=== PATIENT | male | born 2005 | race Caucasian/White ===

== ENCOUNTER 2023-09-08 16:37 | Day surgery (SDC) | payer BC, SELFPAY ==
[2023-09-08 12:02] VITALS: BP 123/81
[2023-09-08] MEDS: OMNIPAQUE 50 ML PO (12:46)
[2023-09-08 12:56] VITALS: BMI 27.0
[2023-09-08] MEDS: NSS 1000 IV (12:57)
[2023-09-08] MEDS: FLAGYL 500 MG 100 IV (13:07)
[2023-09-08 13:12] LABS: % Basophils 0.4 % (0-2); % Eosinophils 1.5 % (0-6); % Immature Granulocytes 0.3 % (0-0.5); % Lymphocytes 17.9 % (20.5-51.1); % Monocytes 10.8 % (1.7-9.3); % Neutrophils 69.1 % (42.2-75.2); Absolute Eosinophils 0.1 10^3/uL (0-0.7); Absolute Lymphocytes 1.7 10^3/uL (1.2-3.4); Absolute Neutrophils 6.5 10^3/uL (1.4-6.5); Hemoglobin 14.3 g/dL (13.0-18.0); Mean Corpuscular Hgb 28.8 pg (27.0-31.0); Mean Corpuscular Volume 84.5 fL (80.0-94.0); Mean Platelet Volume 11.1 fL (7.4-10.4); Nucleated Red Blood Cells % 0 % (-); Platelet Count 216 10^3/uL (130-400); Red Blood Cell Count 4.97 10^6/uL (4.70-6.10); Red Cell Dist. Width 12.7 % (11.5-14.5); White Blood Cell Count 9.4 10^3/uL (4.8-10.8)
[2023-09-08 13:21] LABS: Lactic Acid 0.6 mmol/L (0.7-2.0)
[2023-09-08 13:23] LABS: ALT (SGPT) 22 U/L (0-50); AST (SGOT) 26 U/L (17-59); Alkaline Phosphatase 71 U/L (38-126); Blood Urea Nitrogen 27 mg/dl (9-20); Calcium 9.7 mg/dl (8.4-10.2); Carbon Dioxide 27 mmol/L (22-30); Chloride 104 mmol/L (98-107); Estimated Creatinine Clearance 114 ml/min; Glucose 94 mg/dl (70-99); Potassium 4.6 mmol/L (3.5-5.1); Sodium 139 mmol/L (135-145); Total Bilirubin 0.9 mg/dl (0.2-1.3); Total Protein 7.3 g/dl (6.3-8.2); eGFR > 60.00
[2023-09-08] MEDS: LEVAQUIN 150 IV (14:46)
[2023-09-08 15:11] VITALS: BP 120/66
--- NOTE | 2023-09-08 16:27 | ED.GENMED ---
History of Present Illness
General
Chief Complaint: Skin Problem
Source: patient
Time Seen by Provider: 09/08/23 12:40
History of Present Illness
History of Present Illness:
18yoM with a history of a prior perirectal abscess at the age of 11 presenting with his mother for evaluation of rectal pain. Patient started with rectal discomfort about 2 weeks ago which acutely became worse 3 days ago. He was seen by Dr. Jack in
the outpatient setting today and he was sent to the ED for concern for a perirectal abscess. Patient is having normal bowel movements. He denies any fevers or chills.
Past History
Social History
Tobacco: Non-smoker
Alcohol: None
Drug: None
Phy Exam
General Physical Exam
General Presentation: well appearing and no apparent distress
General age: appears stated age
General Skin: warm and dry
General Habitus: normal
General Mental: alert
Cardiovascular Exam
Cardiovascular Exam: regular rate/rhythm
Pulmonary Exam
Pulmonary Exam: no respiratory distress
Gastrointestinal Exam
Gastrointestinal Exam: non tender, soft and non distended
Rectal Exam: other (Area of pain, swelling, redness, and induration palpated anterior to rectum. )
Skin Exam
Skin Exam: warm/dry
Psychiatric Exam
Psychiatric Exam: normal mood/affect
Course
Orders/Labs/Results
Orders:
Orders
09/08/23 12:40
0.9% Sodium Chloride 1000 ml [Nss] 1,000 ml IV BOLUS
Iohexol [Omnipaque] See Protocol PO NOW STA
09/08/23 12:41
CT Abd/pel W Iv And Oral Contr Urgent
Comment:
Reason For Exam: Perirectal abscess
09/08/23 12:50
LevoFLOXacin 750 MG/150 ML [Levaquin] 750 mg in 150 ml IV NOW
MetroNIDAZOLE 500 MG/100 ML [Flagyl 500 mg] 100 ml IV ONCE
09/08/23 12:56
Complete Blood Count/With Diff Urgent
Comprehensive Metabolic Panel Urgent
Lactate Level [Lactic Acid] Urgent
Abnormal Lab Results
09/08/23
12:56
MPV 11.1 H fL
(7.4-10.4)
Absolute Monos (auto) 1.0 H 10^3/uL
(0.1-0.6)
Lymphocytes % 17.9 L %
(20.5-51.1)
Monocytes % 10.8 H %
(1.7-9.3)
BUN 27 H mg/dl
(9-20)
Lactic Acid 0.6 L mmol/L
(0.7-2.0)
09/08/23 12:56
09/08/23 12:56
Vital Signs
Initial and Last Documented VS:
Initial Vital Signs
Temp Pulse Resp BP Pulse Ox
98 F 62 18 123/81 100
09/08/23 12:02 09/08/23 12:02 09/08/23 12:02 09/08/23 12:02 09/08/23 12:02
Last Documented Vital Signs
Temp Pulse Resp BP Pulse Ox
98 F 60 18 120/66 100
09/08/23 12:02 09/08/23 15:11 09/08/23 15:11 09/08/23 15:11 09/08/23 15:11
MDM/Problems Addressed
Differential Diagnosis Includes:
18yoM here for a possible perirectal abscess. Sent in by colorectal surgery. No f/c. He is well appearing with stable vital signs. There is an area of swelling, tenderness, and induration near the rectum on exam. Differential diagnosis includes but
is not limited to: perirectal abscess, cellulitis, fistula
Initial ED plan: Check CBC, CMP, lactate, and CT abdomen. IV Levaquin and Flagyl per colorectal surgery request.
*Critical Care Note
Total Time (30-74mins, 75-104mins- exclusive of procedures): Not Applicable
Update Note
Update Note:
White count and lactate are normal. CT shows a a 2cm perirectal abscess. Colorectal surgery team notified of result. Plan for OR today for drainage.
ED Attending Note
-
Portions of this chart may have been created with voice recognition software.� Occasional wrong word or��sound alike� substitutions may have occurred due to the inherent limitations of voice recognition software.
Discharge Plan
Departure
Patient Disposition: OR
Date of Disposition: 09/08/23
Time of Disposition: 15:55
Presentation/result/management discussed w/ accepting MD/DO: Dr. Jack
Discharge Problem:
Perirectal abscess
Prescriptions:
No Action
acetaminophen [Tylenol Extra Strength] 500 mg Tablet
1,500 mg PO DAILYPRN PRN (Reason: mild pain)
Referrals:
Quinton Westbrook CRNP [Family Provider] -
Interventions
Interventions:
*Risk Screen - Suicide Last Done: 09/08/23 12:02
*General Assessment Last Done: 09/08/23 12:02
*Neglect/Abuse Screening Last Done: 09/08/23 12:02
*ED COVID-19 Vaccine History Last Done: 09/08/23 14:52
Discharge Date and Time
Print Language: MONGOLIAN
[2023-09-08 18:15] VITALS: BP 159/65
[2023-09-08 18:30] VITALS: BP 150/87
--- NOTE | 2023-09-08 18:30 | W.PN.UPDATE ---
Update Note
Progress Note Update
The patient was seen prior to surgery with his mother and I reviewed the labs (normal wbc) and CT results (2cm right-sided abscess). I again reviewed the operation with the risks, benefits and alternatives. All questions answered and they wish to
proceed.
[2023-09-08 18:45] VITALS: BP 141/91
== END 2023-09-08 18:55 | disposition home or self-care (01) ==
LOC: SDS 16:37
PROVIDERS: Physician Assistant; ATTENDING PHYSICIAN Surgery; EMERGENCY PHYSICIAN Emergency Medicine; FAMILY PHYSICIAN Nurse Practitioner Family
DX: K61.1 Rectal abscess (principal); K61.2 Anorectal abscess
CPT/HCPCS: 46045; 46020; 74177; 80053; 83605; 85025; 96365; 96367; 99285; Q9967

== ENCOUNTER → 2023-09-19 06:49 | Day surgery (SDC) | payer BC, SELFPAY | LOC: GI 06:49 | PROVIDERS: ATTENDING PHYSICIAN Internal Medicine | DX: K63.89 Other specified diseases of intestine (principal); K60.5 Anorectal fistula; K44.9 Diaphragmatic hernia without obstruction or gangrene; K63.2 Fistula of intestine | CPT/HCPCS: 45380; 43239; 88305; 88341; 88342; 88365 ==

== ENCOUNTER → 2023-09-26 10:11 | Outpatient (REF) | payer BC, SELFPAY | LOC: PAVMRI 10:11 | PROVIDERS: ATTENDING PHYSICIAN Internal Medicine; FAMILY PHYSICIAN Nurse Practitioner Family | DX: K12.1 Other forms of stomatitis (principal); Z87.19 Personal history of other diseases of the digestive system; R19.5 Other fecal abnormalities; K60.3 Anal fistula | CPT/HCPCS: 72197; 74183; A9575 ==

== ENCOUNTER 2023-10-06 06:35 | Day surgery (SDC) | payer BC, SELFPAY ==
[2023-10-06 07:47] VITALS: BMI 26.1
[2023-10-06 07:48] VITALS: BMI 26.1
[2023-10-06 07:55] VITALS: BP 149/83
[2023-10-06] MEDS: TYLENOL 1000 MG PO (07:57)
[2023-10-06] MEDS: NORMOSOL-R 1000 IV (07:57)
[2023-10-06 09:40] VITALS: BP 116/52
[2023-10-06 09:45] VITALS: BP 109/55
[2023-10-06 10:00] VITALS: BP 126/69
[2023-10-06 10:15] VITALS: BP 117/64
[2023-10-06 10:30] VITALS: BP 126/88
[2023-10-06] MEDS: ULTRAM 50 MG PO (10:51)
== END 2023-10-06 11:06 | disposition home or self-care (01) ==
LOC: SDS 06:35
PROVIDERS: ATTENDING PHYSICIAN Surgery
DX: K60.5 Anorectal fistula (principal)
CPT/HCPCS: 46280